=== PATIENT | female | born 1985 | race American Indian/Alaskan Native ===

== ENCOUNTER 2018-03-16 00:46 | Emergency (ER) | payer SELFPAY ==
[2018-03-16 01:19] VITALS: BP 110/69
[2018-03-16 02:08] LABS: Hematocrit 41.4 % (30.3-42.9); Hemoglobin 13.6 gm/dl (10.1-14.3); Mean Corpuscular HGB Conc 33 % (30-34); Mean Corpuscular Hemoglobin 29 pg (28-32); Mean Corpuscular Volume 88 fl (79-97); Platelet Count 197 K/mm3 (140-440); Red Cell Distribution Width 14.2 % (13.2-15.2)
== END 2018-03-16 03:15 ==
LOC: ED 00:46
DX: N93.9 Abnormal uterine and vaginal bleeding, unspecified (principal); Z53.21 Procedure and treatment not carried out due to patient leaving prior to being seen by health care provider
CPT/HCPCS: 36415; 84703; 85027

== ENCOUNTER 2018-05-30 12:42 | Emergency (ER) | payer SELFPAY ==
--- NOTE | 2018-05-30 15:29 | Emergency Department Report ---
ED Upper Extremity Inj HPI - General Chief Complaint: Extremity Injury, Upper Stated Complaint: RIGHT WRIST INJURY Time Seen by Provider: 05/30/18 14:37 Source: patient Mode of arrival: Ambulatory Limitations: No Limitations - History of Present Illness Complaint: Injury to:: right -: Sudden Other Extremity Injury: Wrist: Right Other Injuries: none Handedness: right Place: home Improves With: none Worsens With: none Context: direct blow Associated Symptoms: denies other symptoms - Related Data Allergies Allergy/AdvReac Type Severity Reaction Status Date / Time No Known Allergies Allergy Verified 05/30/18 12:57 ED Review of Systems ROS: Stated complaint: RIGHT WRIST INJURY Other details as noted in HPI Comment: All other systems reviewed and negative Constitutional: no symptoms reported Eyes: denies: eye pain ENT: denies: throat pain Respiratory: denies: cough Cardiovascular: denies: palpitations Endocrine: denies: flushing Gastrointestinal: denies: nausea Genitourinary: denies: dysuria Musculoskeletal: other (R WRIST PAIN). denies: back pain Skin: denies: lesions Neurological: denies: headache Psychiatric: denies: depression Hematological/Lymphatic: denies: easy bleeding ED Past Medical Hx - Past Medical History Previous Medical History?: No - Surgical History Past Surgical History?: No - Family History Family history: no significant - Social History Smoking Status: Never Smoker Substance Use Type: None ED Physical Exam - General Limitations: No Limitations General appearance: alert - Head Head exam: Present: atraumatic - Eye Eye exam: Present: normal appearance, PERRL Pupils: Present: normal accommodation - ENT ENT exam: Present: normal exam - Neck Neck exam: Present: normal inspection - Respiratory Respiratory exam: Present: normal lung sounds bilaterally - Cardiovascular Cardiovascular Exam: Present: regular rate - GI/Abdominal GI/Abdominal exam: Present: soft - Rectal Rectal exam: Present: deferred - Extremities Exam Extremities exam: Present: normal inspection, full ROM, normal capillary refill. Absent: tenderness - Expanded Upper Extremity Exam Right Upper Arm exam: Present: normal inspection Elbow exam: Present: normal inspection Forearm Wrist exam: Present: normal inspection Hand Wrist exam: Present: full ROM, tenderness, erythema. Absent: swelling, abrasion, laceration, ecchymosis, deformity, crepidus, dislocation Hand L/R Back: 1 - RED Neuro motor exam: Present: wrist extension intact, thumb opposition intact Neurosensory exam: Present: radial nerve intact, ulnar nerve intact, median nerve intact Vascular: Present: normal capillary refill, radial pulse, ulnar pulse ED Course Vital Signs 05/30/18 05/30/18 12:57 15:45 Temperature 98.6 F Pulse Rate 81 74 Respiratory 16 16 Rate Blood Pressure 106/72 Blood Pressure 102/70 [Left] O2 Sat by Pulse 100 95 Oximetry - Reevaluation(s) Reevaluation #1: 05/30/18 15:39 STEFANI FOR COMFORT ED Medical Decision Making - Radiology Data Radiology results: report reviewed, image reviewed - Medical Decision Making FULL ROM XRAY NEG - Differential Diagnosis RO FX Critical care attestation.: If time is entered above; I have spent that time in minutes in the direct care of this critically ill patient, excluding procedure time. ED Disposition Clinical Impression: Contusion Disposition: DC-01 TO HOME OR SELFCARE Is pt being admited?: No Does the pt Need Aspirin: No Condition: Stable Instructions: Contusion in Adults (ED) Additional Instructions: ICE AREA WHEN PAINFUL TYLENOL OR MOTRIN FOR COMFORT XRAY NORMAL FOLLOW UP WITH PCP IF PERSISTS Referrals: SAMANTHA CLEANING JR, MD [Staff Physician] - 3-5 Days Forms: Work/School Release Form(ED) Time of Disposition: 15:28
[2018-05-30 15:46] VITALS: BP 102/70
--- NOTE | 2018-05-30 15:52 | XRay Report ---
FINAL REPORT EXAM: XR WRIST 2V RT HISTORY: FALL COMPARISON: None. TECHNIQUE: Views of the right wrist. FINDINGS: There is normal alignment without acute fracture or dislocation. There is a prior ulnar styloid fracture. The joint spaces are preserved. The overlying soft tissues are intact. IMPRESSION: No acute bony abnormality of the right wrist.
== END 2018-05-30 15:54 | disposition home or self-care (01) ==
LOC: ED 12:42
DX: S60.211A Contusion of right wrist, initial encounter (principal); W10.8XXA Fall (on) (from) other stairs and steps, initial encounter; Y93.89 Activity, other specified; Y92.009 Unspecified place in unspecified non-institutional (private) residence as the place of occurrence of the external cause; Y99.8 Other external cause status
CPT/HCPCS: 99283

== ENCOUNTER 2018-08-14 14:07 | Emergency (ER) | payer MEDICAID ==
[2018-08-14] MEDS ORDERED: IBUPROFEN PO ONE (17:38)
--- NOTE | 2018-08-14 17:41 | Emergency Department Report ---
ED Lower Extremity HPI - General Chief Complaint: Extremity Injury, Lower Stated Complaint: RT ANKLE PAIN Source: patient Mode of arrival: Ambulatory Limitations: No Limitations - History of Present Illness Initial Comments: This is a 33 year-old female who presents with right ankle pain from a fall 2 days ago. Patient states she was in route to work and slipped on the stick to fail. She is now complaining of some right lateral ankle pain that is worse with weightbearing and movement. Patient reports pain currently is 6 out of 10 on pain scale and worse with movement. She reports pain is a achy sensation that is intermittent. She is able to apply full weight bearing with discomfort. She states she is currently soaking right ankle in Epsom salts to avoid swelling. She denies fever, numbness or tingling, swelling, paresthesia, or weakness. MD Complaint: ankle injury (right) Onset/Timin -: days(s) Injury: Ankle: Right Type of Injury: blunt Place: street/outdoors Severity: moderate Severity scale (0 -10): 6 Improves With: other (soaks) Worsens With: weight bearing, movement, palpation Context: fall Associated Symptoms: unable to bear weight, ambulatory - Related Data Previous Rx's Medication Instructions Recorded Last Taken Type Naproxen [Naprosyn] 500 mg PO TID PRN #12 tablet 08/14/18 Unknown Rx Allergies Allergy/AdvReac Type Severity Reaction Status Date / Time No Known Allergies Allergy Verified 05/30/18 12:57 ED Review of Systems ROS: Stated complaint: RT ANKLE PAIN Other details as noted in HPI Constitutional: denies: chills, fever Respiratory: denies: cough, shortness of breath, wheezing Cardiovascular: denies: chest pain, palpitations Gastrointestinal: denies: abdominal pain, nausea, diarrhea Musculoskeletal: arthralgia (right ankle) Skin: denies: rash, lesions Neurological: denies: headache, weakness, paresthesias Psychiatric: denies: anxiety, depression ED Past Medical Hx - Past Medical History Previous Medical History?: Yes Additional medical history: Vaginal delivery x 4 - Surgical History Past Surgical History?: No - Social History Smoking Status: Former Smoker Substance Use Type: Alcohol - Medications Home Medications: Home Medications Medication Instructions Recorded Confirmed Last Taken Type Naproxen [Naprosyn] 500 mg PO TID PRN #12 tablet 08/14/18 Unknown Rx ED Physical Exam - General Limitations: No Limitations General appearance: alert, in no apparent distress - Respiratory Respiratory exam: Present: normal lung sounds bilaterally. Absent: respiratory distress - Cardiovascular Cardiovascular Exam: Present: regular rate, normal rhythm. Absent: systolic murmur, diastolic murmur, rubs, gallop - Expanded Lower Extremity Exam Right Hip exam: Present: normal inspection, full ROM Upper Leg exam: Present: normal inspection, full ROM Knee exam: Present: normal inspection, full ROM Lower Leg exam: Present: normal inspection, full ROM Ankle exam: Present: full ROM (painful range of motion), tenderness (tenderness above the lateral malleolus). Absent: swelling, abrasion, laceration, ecchymosis, deformity, crepidus, dislocation, erythema, anterior draw sign Foot/Toe exam: Present: normal inspection, full ROM Neuro vascular tendon exam: Present: no vascular compromise Gait: Positive: observed and normal - Neurological Exam Neurological exam: Present: alert, oriented X3 - Psychiatric Psychiatric exam: Present: normal affect, normal mood - Skin Skin exam: Present: warm, dry, intact, normal color. Absent: rash ED Course Vital Signs 08/14/18 08/14/18 08/14/18 14:20 17:53 17:56 Temperature 98.3 F 98.2 F Pulse Rate 103 H 78 Respiratory 18 18 20 Rate Blood Pressure 100/60 Blood Pressure 138/73 [Right] O2 Sat by Pulse 98 96 Oximetry ED Lower Extremity MDM - Radiology Data Radiology results: report reviewed FINAL REPORT EXAM: XR ANKLE 2V RT HISTORY: right lateral ankle pain TECHNIQUE: Frontal and lateral views right ankle Comparison: None FINDINGS: There is no evidence of fracture or subluxation. The mortise joint is maintained. The soft tissues are unremarkable. IMPRESSION: 1. No evidence of bony or soft tissue abnormality. - Medical Decision Making Patient was examined by me. Vitals are normal and patient is in no acute distress. Obtained a x-ray of right ankle. X-rays dictated by radiologist and reviewed by myself. No evidence of bony or soft tissue abnormality. Chris wrap applied to right ankle. Patient informed of results. Physical findings is susceptible of muscle strain of right ankle. If her symptoms do not improve that has discussed follow-up. Start naproxen for pain. Plan discussed with patient to discharge home and treat outpatient. Patient discharged home in stable condition. Follow up with PCP in 2-3 days. Critical care attestation.: If time is entered above; I have spent that time in minutes in the direct care of this critically ill patient, excluding procedure time. ED Disposition Clinical Impression: Right ankle injury Qualifiers: Encounter type: initial encounter Qualified Code(s): S99.911A - Unspecified injury of right ankle, initial encounter Muscle strain of ankle Qualifiers: Encounter type: initial encounter Laterality: right Qualified Code(s): S96.911A - Strain of unspecified muscle and tendon at ankle and foot level, right foot, initial encounter Disposition: TO HOME OR SELFCARE Is pt being admited?: No Does the pt Need Aspirin: No Condition: Stable Instructions: Muscle Strain (ED), RICE Therapy (ED) Additional Instructions: Rest Use ice or heat on affected area for 20 minutes and off for 2 hours. Take pain medication as needed for pain. Follow up with Primary Care Provider in 2-3 days. Prescriptions: Naproxen [Naprosyn] 500 mg PO TID PRN #12 tablet PRN Reason: Pain , Severe (7-10) Referrals: [facility] [Outside] - 3-5 Days [facility] [Outside] - 3-5 Days [facility] [Outside] - 3-5 Days MARCELA JOHNSON MD [Staff Physician] - 3-5 Days Forms: Work/School Release Form(ED) Time of Disposition: 18:52
[2018-08-14 17:57] VITALS: BP 138/73
--- NOTE | 2018-08-14 18:37 | XRay Report ---
FINAL REPORT EXAM: XR ANKLE 2V RT HISTORY: right lateral ankle pain TECHNIQUE: Frontal and lateral views right ankle Comparison: None FINDINGS: There is no evidence of fracture or subluxation. The mortise joint is maintained. The soft tissues are unremarkable. IMPRESSION: 1. No evidence of bony or soft tissue abnormality.
== END 2018-08-14 18:58 | disposition home or self-care (01) ==
LOC: ED 14:07
DX: S99.911A Unspecified injury of right ankle, initial encounter (principal); S96.911A Strain of unspecified muscle and tendon at ankle and foot level, right foot, initial encounter; Z87.891 Personal history of nicotine dependence; W01.0XXA Fall on same level from slipping, tripping and stumbling without subsequent striking against object, initial encounter; Y93.89 Activity, other specified; Y92.69 Other specified industrial and construction area as the place of occurrence of the external cause; Y99.8 Other external cause status